=== PATIENT | male | born 1975 | race Caucasian/White ===

== ENCOUNTER → 2019-08-13 | Outpatient (CLI) | payer BC | LOC: ZCOL.LAB 16:55 | DX: R51 Headache (principal); Z20.828 Contact with and (suspected) exposure to other viral communicable diseases ==

== ENCOUNTER → 2019-09-27 | Outpatient (CLI) | payer BC | LOC: ZCOL.LAB 14:00 | DX: J34.89 Other specified disorders of nose and nasal sinuses (principal); R05 Cough; M79.10 Myalgia, unspecified site; R50.9 Fever, unspecified; Z20.828 Contact with and (suspected) exposure to other viral communicable diseases ==